=== PATIENT | female | born 1960 | race Caucasian/White ===

== ENCOUNTER 2016-12-27 13:25 | Inpatient (IN) | payer OTHER ==
[2016-12-27] MEDS ORDERED: NS 1,000 ML IV ONE ×2 (13:43→13:44)
[2016-12-27] MEDS ORDERED: DIAZEPAM 5 MG TAB PO ONE (13:43)
[2016-12-27] MEDS ORDERED: diphenhydrAMINE 25 MG CAP PO ONE ×2 (13:43→14:39)
[2016-12-27] MEDS ORDERED: ASPIRIN EC 325 MG TAB PO ONE ×2 (13:43→14:39)
[2016-12-27] MEDS ORDERED: FAMOTIDINE 20 MG TAB PO ONE (13:43)
[2016-12-27] MEDS ORDERED: BENZOCAINE UNIT DOSE SPRAY HURRICAINE MM ONE (13:44)
[2016-12-27] MEDS ORDERED: MIDAZOLAM 2 MG/2 ML VIAL IVP ONE (13:44)
[2016-12-27] MEDS ORDERED: fentaNYL 100 MCG/2 ML INJ IVP ONE (13:44)
--- NOTE | 2016-12-27 14:30 | CPEKG ---
Heart Rate: 65 RR Interval: 923 P-R Interval: 164 QRSD Interval: 162 QT Interval: 468 QTC Interval: 487 P [place]: 68 QRS [place]: -48 T Wave [place]: 113 EKG Severity - ABNORMAL ECG - EKG Impression: SINUS RHYTHM EKG Impression: PROBABLE LEFT ATRIAL ABNORMALITY EKG Impression: LEFT BUNDLE BRANCH BLOCK Electronically Signed By: Amarjit Snyder 27-Dec-2016 19:29:13
[2016-12-27] MEDS ORDERED: FAMOTIDINE 20 MG TAB ONE (14:39)
[2016-12-27] MEDS ORDERED: DIAZEPAM 5 MG TAB ONE (14:40)
[2016-12-27 14:47] LABS: % IMMATURE GRANULYOCYTES 0.5 % (0.0-1.1); ABSOLUTE IMMATURE GRANULOCYTES 0.05 10^3/uL (0.00-0.10); ADD DIFF? NO; ADD MORPH? NO; ADD SCAN? NO; ATYPICAL LYMPHOCYTE FLAG 0 (0-99); FRAGMENT RBC FLAG 0 (0-99); HEMATOCRIT 38.6 % (38.0-47.0); HEMOGLOBIN 13.2 g/dL (12.6-16.3); LEFT SHIFT FLG 10 (0-99); LIPEMIA HEMOLYSIS FLAG 90 (0-99); MEAN CELL HEMOGLOBIN 31.4 pg (27.9-34.1); MEAN CELL HEMOGLOBIN CONCENTR. 34.2 g/dL (32.4-36.7); MEAN CELL VOLUME 91.7 fL (81.5-99.8); MEAN PLATELET VOLUME 12.6 fL (8.7-11.7); PLATELET CLUMPS FLAG 0 (0-99); PLATELET COUNT 110 10^3/uL (150-400); RED BLOOD CELL COUNT 4.21 10^6/uL (4.18-5.33); RED CELL DISTRIBUTION WIDTH 14.5 % (11.5-15.2)
[2016-12-27 14:58] LABS: INR 1.16 (0.83-1.16); PROTIME(PATIENT) 14.8 SEC (12.0-15.0)
[2016-12-27 15:14] LABS: ANION GAP 11 mEq/L (8-16); CALCIUM 9.6 mg/dL (8.5-10.4); CARBON DIOXIDE 24 mEq/l (22-31); CHLORIDE 103 mEq/L (97-110); CHOLESTEROL 130 mg/dL (140-220); CHOLESTEROL/HDL RATIO 1.76 RATIO (1.00-4.44); CREATININE 0.8 mg/dL (0.6-1.0); GLOMERULAR FILTRATION RATE > 60; GLUCOSE 96 mg/dL (70-100); HIGH DENSITY LIPOPROTEIN 74 mg/dL (40-85); LDL/HDL RATIO 0.58 RATIO (1.00-3.22); LOW DENSITY LIPOPROTEIN 43 mg/dL (80-100); MAGNESIUM 1.9 mg/dL (1.6-2.3); NON-HIGH DENSITY LIPOPROTEIN 56 mg/dL (90-129); POTASSIUM 3.9 mEq/L (3.5-5.2); SODIUM 138 mEq/L (134-144); TRIGLYCERIDE 66 mg/dL (35-135); VERY LOW DENSITY LIPOPROTEINS 13 mg/dL (8-25)
[2016-12-27] MEDS ORDERED: MIDAZOLAM 2 MG/2 ML VIAL ONE ×2 (15:49→15:57)
[2016-12-27] MEDS ORDERED: fentaNYL 100 MCG/2 ML INJ ONE ×2 (15:50→15:57)
[2016-12-27] MEDS ORDERED: VERAPAMIL 5 MG/2 ML VIAL ONE (15:57)
[2016-12-27] MEDS ORDERED: LIDOCAINE 1% 30 ML SDV ONE (15:57)
[2016-12-27] MEDS ORDERED: HEPARIN 10,000 UNIT/10 ML MDV ONE ×2 (15:57→17:30)
[2016-12-27] MEDS ORDERED: IOPAMIDOL (ISOVUE-370) 150 ML BTL IV ONE ×3 (15:58→18:28)
--- NOTE | 2016-12-27 18:38 | PDDXCAT ---
Diagnostic Cath Note - . Date: 12/28/16 Intervention: none *Procedure 1. selective coronary angiography 2. left heart catheterization 3. left ventriculogram 4. right heart catheterization Indication: Sully's nuclear stress test performed 12/15/2016 revealed evidence of an apical myocardial infarction with a small area of daysi infarct-ischemia and was unchanged compared to a prior study; however, this may be consistent with artifact as the apical wall motion was normal on the echocardiogram performed the same day. The patient's echocardiogram showed mild to moderate aortic stenosis, mild mitral regurgitation and moderate mitral stenosis. The mean peak and mean aortic gradient were 43 mmHg and 23 mmHg, respectively. The peak and mean mitral gradient was 23 mmHg and 15 mmHg, respectively. The pulmonary pressure was elevated at 53 mmHg consistent with moderate pulmonary hypertension. Compared to a prior study, the severity of the aortic and mitral valve have worsened. We performed MIKHAIL earlier today with planned LHC and RHC given the progressive nature of her dyspnea on exertion and LM stenting. Access: Right femoral artery, right femoral vein. *Materials Left Heart Cath size: 6F Left Heart Cath materials: JR4.0, pigtail, Ranjit, AL1, Curt Right Right Heart Cath size: 7F Right Heart Cath materials: PWP *Findings-Selective Coronary Angiography LM: The left main is ~5 mm in size and bifurcates into an LAD and circumflex system. Previous stenting of the left main is widely patent with 5-10% residual stenosis. LAD: The proximal LAD is ~3 mm in size. Maximal luminal stenosis of 20% at the ostium of the LAD. There is ZOHRA III flow throughout. LCX: The proximal left circumflex is ~4 mm in size. Previous stenting is widely patent with ZOHRA III flow. RCA: The right coronary artery is ~4 mm in size and dominant (gives rise to PDA and PLV branches). Previous stenting in the right coronary artery is patent without flow-limiting obstruction and ZOHRA III flow throughout. *Findings-Left Heart Catheterization LVEDP: 17 mmHg AO: 122/75/94 mmHg LVEF: 60% LVG: There are no wall motion abnormalities identified on left ventriculogram. *Findings-Right Heart Catheterization RA: 22/25/15 mmHg RV: 62/8/17 mmHg PA: 68/33/48 mmHg PWP: 33/34/28 mmHg CO: 4.18 L/min CI: 2.16 L/min/m^2 PA SAT: 71.7% AO SAT: 88.7% SVC SAT: 72.3% IVC SAT: 56.4% Valve Results: Aortic Valve: Mean Gradient 18.4 mmHg, Flow 221.6 mL/s, Area 1.2 cm^2, Area Index 0.6 cm^2/m^2 Mitral Valve: Mean Gradient 7.64 mmHg, Flow 134.8 mL/s, Area 1.29 cm^2, Area Index 0.67 cm^2/m^2 *Summary Complications: None Estimated blood loss: <50ml Closure method: Manual pressure Assessment/Conclusion: 1. [place] vessel coronary artery disease without flow-limiting obstruction or in -stent restenosis. There was ~10% left main restenosis, 20% ostial LAD stenosis and a patent RCA stent. There was ZOHRA III flow throughout. 2. Elevated pulmonary artery pressure and PWP with mean mitral valve gradient of 7.6 mmHg and aortic valve gradient 18.4 mmHg. 3. Elevated LVEDP at 17 mmHg. Patient Problems: Problems Problem Status Onset Chronic anticoagulation Chronic presence of left main coronary stent Chronic sternal inflammation Chronic
[2016-12-27] MEDS ORDERED: ACETAMINOPHEN 325 MG TAB PO PRN (18:49)
[2016-12-27] MEDS ORDERED: ONDANSETRON 4 MG/2 ML VIAL IVP PRN (18:49)
[2016-12-27] MEDS ORDERED: NITROGLYCERIN 0.4 MG BTL SL PRN (18:49)
[2016-12-27] MEDS ORDERED: ONDANSETRON DISINTEGRATING 4 MG TAB PO PRN (18:49)
[2016-12-27] MEDS ORDERED: ATROPINE SULFATE 1 MG/10 ML SYR IVP PRN (18:49)
[2016-12-27] MEDS ORDERED: NS 1,000 ML IV SCH (19:00)
--- NOTE | 2016-12-27 22:44 | CPEKG ---
Heart Rate: 61 RR Interval: 984 P-R Interval: 172 QRSD Interval: 160 QT Interval: 476 QTC Interval: 480 P [place]: 69 QRS [place]: -45 T Wave [place]: 117 EKG Severity - ABNORMAL ECG - EKG Impression: SINUS RHYTHM EKG Impression: PROBABLE LEFT ATRIAL ABNORMALITY EKG Impression: LEFT BUNDLE BRANCH BLOCK Electronically Signed By: Amarjit Snyder 28-Dec-2016 14:46:32
[2016-12-28] MEDS ORDERED: METOPROLOL TARTRATE 25 MG TAB PO ONE (08:30)
[2016-12-28] MEDS ORDERED: IOPAMIDOL (ISOVUE 370) 100 ML BTL IV ONE (08:39)
[2016-12-28] MEDS ORDERED: METOPROLOL TARTRATE 5 MG/5 ML INJ ONE (08:53)
[2016-12-28] MEDS ORDERED: METOPROLOL TARTRATE 5 MG/5 ML INJ IVP ONE (09:00)
[2016-12-28] MEDS ORDERED: METOPROLOL TARTRATE 5 MG/5 ML INJ IV ONE (11:15)
[2016-12-28] MEDS ORDERED: DOCUSATE SODIUM 100 MG CAP PO ONE (13:24)
[2016-12-28] MEDS: DOCUSATE SODIUM 100 MG CAP PO SCH (14:30)
[2016-12-28] MEDS: CARVEDILOL 3.125 MG TAB PO SCH (17:52)
[2016-12-28] MEDS: DIAZEPAM 5 MG TAB PO SCH ×2 (20:33→21:38)
[2016-12-29] MEDS: DOCUSATE SODIUM 100 MG CAP PO SCH (07:50)
[2016-12-29] MEDS: CARVEDILOL 3.125 MG TAB PO SCH (07:50)
[2016-12-29 07:57] VITALS: TEMP 98.6
[2016-12-29] MEDS ORDERED: PRASUGREL HCL 10 MG TAB PO SCH (09:00)
[2016-12-29] MEDS ORDERED: ASPIRIN 81 MG CHEWABLE TAB PO SCH (09:00)
[2016-12-29 12:15] VITALS: BP 118/63; PULSE 80; RESP 17; O2SAT 95
--- NOTE | 2016-12-29 19:59 | GDS ---
[f rep st] DISCHARGE SUMMARY ADMISSION DIAGNOSES: 1. Aortic valve disease. 2. Mitral valve disease. 3. History of thoracic aortic aneurysm, status post repair. 4. Coronary artery disease. 5. Pulmonary hypertension. 6. Left bundle branch block. DISCHARGE DIAGNOSES: 1. Valvular heart disease with evidence of moderate aortic stenosis and at least moderate mitral st enosis. 2. Coronary artery disease. 3. Pulmonary hypertension. 4. Shortness of breath. 5. Left bundle branch block. HISTORY OF PRESENT ILLNESS: For detailed history of present illness, please see the recently dictat ed H and P. Briefly, the patient has developed progressive shortness of breath on exertion, and mini mal exertion resulting in significant shortness of breath. An example of this is that her fi xed or cruiser bike; she rode around the block and came back profoundly short of breath. She has jono rtness of breath with walking down my hallway and back twice in my office, which is approximately 20 0 feet and was fairly profoundly short of breath and tachycardiac with that level of effort. Her nuc lear stress test was also abnormal, and there was suggestion of mitral stenosis on the echocardiogra m performed prior to her admission. She underwent hospital admission for right and left heart cathet erization, as well as a MIKHAIL, to assess the status of her aortic and mitral valve, as well as to perf orm angiography to rule out restenoses of the ostial right coronary and left main stents. HOSPITAL COURSE: The patient was admitted and underwent elective MIKHAIL and right and left heart latonya terization. Please see the details of those reports under separate cover. Briefly, she appears to montanez ve at least mild aortic and outflow tract obstruction related to the small size of her outflow tract and aorta. The patient also has an LVEDP of 17 mmHg with a mean gradient which was calculated by [facility] computer with simultaneous tracings in the pulmonary capillary wedge position, and left ventricula r end-diastolic pressure to be at 7.8 mmHg. However, when reviewing the tracings on a 40 mm scale, i t is fairly clear that, at times, the pulmonary capillary wedge pressure is as high as 35, when the concomitant left ventricular end-diastolic pressure is 17, which would be consistent with a relative ly severe mitral stenosis. The patient does have normal ejection fraction and has also been noted to have pulmonary hypertension as well, with pulmonary pressures which were as high as 65 mmHg systoli c. 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 This prompted a [facility], overnight stay, and a CT scan of the thoracic aorta on the following day, to ensure t hat there was no evidence of dissection. This test was reviewed with the radiologist, Dr. Sinan mancia, and was compared to a prior study, and there was no evidence of dissection or new extravasation of contrast on the study performed 10/28/2016. On the morning of her hospital discharge, the patien gloria is medically stable and ready for discharge to home. MEDICATIONS: To include aspirin 81 mg daily, Effient 10 mg daily, Coreg 6.25 mg p.o. b.i.d. DISCHARGE INSTRUCTIONS: Her activities are to be limited by groin precautions. She is to return pro mptly to the emergency department should she suffer stroke-like symptoms, chest pain, shortness of b reath, decline in exercise tolerance, or other symptoms of concern. I would like to present her case at our case conference tomorrow morning, as well as with valvuloplasty specialists, including Dr. Mary mckeon at the [place], to see if he thinks elective mitral valvuloplasty would be of be nefit in improving the patient's symptoms, reducing left atrial and pulmonary pressures, as well as improving cardiac filling with a mitral valvuloplasty. /[id number]/MODL
[2016-12-30] MEDS ORDERED: Herbals/Supplements -Info Only PO SCH (09:00)
[2016-12-30] MEDS ORDERED: MAGNESIUM OXIDE 400 MG TAB PO SCH (09:00)
== END 2016-12-29 15:32 | disposition home or self-care (01) | DRG 287 ==
LOC: FCATH 13:25 → F2W 17:13 → F2N 18:49 → OBSVTOIN 12-28 17:00
PROVIDERS: ADMIT Internal Medicine Cardiovascular Disease; ATTEND Internal Medicine Cardiovascular Disease
PROC: 4A023N8 Measurement of Cardiac Sampling and Pressure, Bilateral, Percutaneous Approach (ICD-10-PCS; principal; 2016-12-27)
PROC: B2111ZZ Fluoroscopy of Multiple Coronary Arteries using Low Osmolar Contrast (ICD-10-PCS; principal; 2016-12-27)
PROC: B2151ZZ Fluoroscopy of Left Heart using Low Osmolar Contrast (ICD-10-PCS; principal; 2016-12-27)
PROC: B245ZZ4 Ultrasonography of Left Heart, Transesophageal (ICD-10-PCS; principal; 2016-12-27)
DX: I08.0 Rheumatic disorders of both mitral and aortic valves (principal); I25.10 Atherosclerotic heart disease of native coronary artery without angina pectoris; I27.2 Other secondary pulmonary hypertension; I44.7 Left bundle-branch block, unspecified; Z95.5 Presence of coronary angioplasty implant and graft
CPT/HCPCS: 82947-QW; C1760; C1769; G0378; J1644; J2250; J3010; Q9967

== ENCOUNTER → 2017-04-11 | Outpatient (CLI) | payer OTHER ==
[~2017-04-11] MED LIST: GADOBUTROL 10 ML VIAL IVP ONE
== END ==
LOC: FIMAGING 06:55
PROVIDERS: ATTEND Internal Medicine Cardiovascular Disease
DX: I35.0 Nonrheumatic aortic (valve) stenosis (principal); I05.0 Rheumatic mitral stenosis; I27.2 Other secondary pulmonary hypertension; I25.10 Atherosclerotic heart disease of native coronary artery without angina pectoris; Z95.4 Presence of other heart-valve replacement
CPT/HCPCS: A9585

== ENCOUNTER → 2017-05-04 | Outpatient (CLI) | payer OTHER ==
[~2017-05-04] MED LIST changes: +IOPAMIDOL (ISOVUE 370) 100 ML BTL IV ONE
== END ==
LOC: FIMAGING 07:52
PROVIDERS: ATTEND Physician Assistant Medical
DX: I27.2 Other secondary pulmonary hypertension (principal); R41.3 Other amnesia; R78.81 Bacteremia
CPT/HCPCS: A9585; Q9967